=== PATIENT | female | born 1995 | race Caucasian/White ===

== ENCOUNTER 2016-05-15 00:17 | Emergency (ER) | payer SELFPAY ==
[2016-05-15 00:51] LABS: BASOPHIL % 0.3 % (0-2); PLATELET COUNT 198 x10^3mcL (130-400); RED CELL DISTRIBUTION WIDTH 13.7 % (11.5-14.5)
[2016-05-15 00:52] LABS: microscopic required? YES; urine erythrocyte NEGATIVE (NEGATIVE)
[2016-05-15 01:00] LABS: CALCIUM 8.8 mg/dL (8.5-10.1); CARBON DIOXIDE 23.1 mmol/L (21-32); CHLORIDE SERUM 104 mmol/L (98-107); CREATININE SERUM 0.5 mg/dL (0.6-1.0); GFR1 > 60 mL/min; GLUCOSE SERUM 100 mg/dL (74-106); POTASSIUM SERUM 3.5 mmol/L (3.5-5.1); SODIUM SERUM 135 mmol/L (136-145)
[2016-05-15 01:07] LABS: ALKALINE PHOSPHATASE 63 U/L (46-116); ALT/SGPT 46 U/L (14-59); AMYLASE 95 U/L (25-115); AST/SGOT 31 U/L (15-37); BILIRUBIN TOTAL 0.25 mg/dL (0.20-1.00); LIPASE 181 IU/L (73-393)
[2016-05-15 01:11] LABS: ALBUMIN 2.8 g/dL (3.4-5.0)
[2016-05-15 02:08] VITALS: BP 114/66
== END 2016-05-15 02:09 | disposition home or self-care (01) ==
LOC: ED 00:17
PROVIDERS: Emergency Medicine
DX: N39.0 Urinary tract infection, site not specified (principal)
CPT/HCPCS: 87804